=== PATIENT | male | born 1960 | race Caucasian/White ===

== ENCOUNTER 2020-04-21 17:35 | Emergency (ER) | payer MEDICARE, SELFPAY ==
[2020-03-02 10:51] VITALS: BMI 25.2
[2020-04-21 17:36] VITALS: BP 154/88; PULSE 70; RESP 16; TEMP 36.6; O2SAT 95; BMI 25.7
[2020-04-21 19:13] LABS: Absolute Lymphocyte Count 2.53 X10^3/uL (0.83-4.51); Absolute Neutrophil Count 3.3 X10^3/uL (2.0-7.7); Basophil# 0.03 X10^3/uL; Basophil% 0.4 % (0-1); Eosinophil# 0.21 X10^3/uL; Eosinophils% 3.1 % (0-5); Hematocrit 38.6 % (40-54); Hemoglobin 12.9 g/dL (13.0-16.5); Lymphocyte # 2.53 X10^3/ul (4.0); Lymphocyte % 37.4 % (19-41); Mean Corp Hgb Conc 33.4 g/dL (32-36); Mean Corpuscular Hgb 31.1 pg (27.0-32.0); Mean Platelet Vol. 9.2 fl (6.2-12.0); Monocyte# 0.72 X10^3/uL; Monocyte% 10.6 % (0-10); NRBC Flagged by Analyzer 0 % (0-5); Neutrophil # 3.27 X10^3/uL (2.7-7.7); Neutrophil % 48.4 % (47-70); Platelet Count 230 K/mm3 (150-450); RBC Distribution Width CV 12.9 % (11.6-14.6); RBC Distribution Width SD 43.4 fl (35.1-43.9); Red Blood Count 4.15 M/mm3 (4.6-6.2); White Blood Count 6.8 K/mm3 (4.4-11.0)
[2020-04-21 19:27] LABS: Anion Gap 5 (5-15); BUN 19 mg/dL (7-18); Calcium,Total 8.6 mg/dL (8.5-10.1); Chloride 108 mmol/L (98-107); EST Glomerular Filtration Rate 91 mL/min (>60); Est Glom Filt Rate - Afr Amer 110 mL/min (>60); Glucose 96 mg/dL (74-106); Sodium Level 142 mmol/L (136-145)
[2020-04-21 19:57] VITALS: BP 155/91; PULSE 62; RESP 18; O2SAT 96
--- NOTE | 2020-04-21 20:25 | CT_ITS ---
STUDY: CT ABDOMEN AND PELVIS WITHOUT CONTRAST REASON FOR EXAM: Male, 59 years old. L flank and lower abdominal pain. RADIATION DOSAGE (If Supplied By Facility): CTDIvol = ( 6.95 ) mGy, DLP = ( 529.02 ) mGycm TECHNIQUE: Transaxial images were obtained from the dome of the diaphragm to the symphysis pubis without oral contrast, and without intravenous contrast. Sagittal and coronal images were reconstructed. Individualized dose optimization techniques were used for this CT. COMPARISON: None. FINDINGS: The visualized lung bases are unremarkable. The visualized portions of the heart are within normal limits. Small hypodensity in segment 3 of the liver thought to be a cyst. This is too small to further characterize on a noncontrast study. Liver is otherwise unremarkable. Normal gallbladder and extrahepatic biliary system. Normal spleen. Normal pancreas. Normal bilateral adrenal glands. There are multiple right renal calculi. The largest, in the lower pole measures 3 mm. There are multiple right renal cysts. The largest, in the lower pole, measures 3.3 cm in diameter. There is no hydronephrosis. Normal right ureter. There are multiple nonobstructing left renal calculi. The largest mid kidney measures 4 mm in diameter. There is no solid mass or cyst. There is no hydronephrosis. Normal left ureter. Normal visualized stomach. Normal small intestine. Feces is seen throughout the colon without mass or obstruction. There are scattered diverticuli without acute inflammatory change. The appendix is visualized and appears normal. There is diffuse atherosclerotic calcification of the abdominal aorta, without a demonstrated aneurysm. Normal inferior vena cava. Normal retroperitoneum. Normal urinary bladder. The prostate is mildly enlarged. There is no pelvic lymphadenopathy. No free air or free fluid within the peritoneal cavity. Benign umbilical hernia with mental fat. There is a large left inguinal hernia containing unobstructed loops of small bowel. There are diffuse degenerative changes of the visualized lumbar spine. CT/Abdomen/Pelvis without Cont IMPRESSION: 1. Multiple bilateral renal calculi without hydronephrosis or ureterectasis. 2. Mildly enlarged prostate. 3. Scattered colonic diverticuli without diverticulitis. 4. Left inguinal hernia containing unobstructed small bowel. 5. The and right renal cysts. 6. Degenerative changes of the lumbar spine. Electronically Signed: Jerson Hudson DO at 20:56 EDT Tel [phone], Service support ,
[2020-04-21 21:50] LABS: Bacteria 0 SEEN /hpf (None Seen); Mucous, Urine 0 SEEN /hpf (<or=2+); Red Blood Cells-Urine 0 SEEN /hpf (0-5); Squamous Epithelial Cells - UA 0 SEEN /hpf (0-5)
--- NOTE | 2020-04-21 21:50 | ED.VIS.GEN ---
History of Present Illness Chief Complaint: Flank Pain Informant: Patient Narrative: Patient presents the emergency department with suprapubic pain that he has had for couple days but worse today. He states that this is the exact pain that he had when he has passed kidney stones in the past. He is visiting from [place] he denies any bowel changes. He denies any dysuria frequency or hematuria. No radiation to the back. No fevers. Patient states that it is hard for him to stand up when the pain comes which it does in waves. Past Medical History - Allergies and Home Meds Allergies/Adverse Reactions: Allergies No Known Allergies Allergy (Verified 04/21/20 17:38) Primary Care Physician: Tomeka Buckley MD [STAFF PHYSICIAN] - 1-2 Days if not improving Smoking Status: Former smoker Review of Systems General: Denies: Chills, Fever, Sweats Eyes: Denies: Visual changes - bilaterally, Diplopia ENT: Denies: Rhinorrhea, Sore throat Cardiovascular: Denies: Chest pain, Palpitations Respiratory: Denies: Dyspnea, Cough, Dyspnea on exertion Gastrointestinal: Reports: Abdominal pain. Denies: Nausea, Vomiting, Diarrhea, Melena, Hematochezia Genitourinary: Denies: Dysuria, Hematuria, Frequency Musculoskeletal: Denies: Back pain, Extremity Pain Skin: Denies: Rash, Wounds Neurological: Denies: Headache, Weakness, Numbness Physical Exam Vital Signs/Narrative: Vital Signs Pulse Resp BP Pulse Ox 04/21/20 19:57 62 18 155/91 H 96 Inital Vital Signs reviewed: Yes General: Well nourished, Well developed, No Acute Distress Head: Normocephalic, Atraumatic Eyes: Perrl, EOMI ENT: Moist mucous membranes, No rhinorrhea Neck: Supple, Nontender Cardiovascular: Regular rate, Regular rhythm, No murmurs Respiratory: No distress, CTA bilaterally, Chest nontender Abdomen: Soft, Nondistended, Normal bowel sounds, Tender - Mildly tender palpation in the suprapubic region Back: Nontender, Normal Inspection Extremities: Nontender, No edema Skin: Normal color, No rash Neurological: Alert, Oriented x3, Cranial nerves II-XII grossly intact, Normal Strength, Normal Sensation Psychological: Normal affect, Normal Mood Diagnostic/Tx/Re-eval Clinical Impression(s) from Imaging Studies Abdomen/Pelvis CT 04/21/20 20:25 IMPRESSION: 1. Multiple bilateral renal calculi without hydronephrosis or ureterectasis. 2. Mildly enlarged prostate. 3. Scattered colonic diverticuli without diverticulitis. 4. Left inguinal hernia containing unobstructed small bowel. 5. The and right renal cysts. 6. Degenerative changes of the lumbar spine. Electronically Signed: Jerson Hudson DO at 20:56 EDT Tel [phone], Service support , Laboratory Last Values WBC 6.8 K/mm3 (4.4-11.0) 04/21/20 18:55 RBC 4.15 M/mm3 (4.6-6.2) L 04/21/20 18:55 Hgb 12.9 g/dL (13.0-16.5) L 04/21/20 18:55 Hct 38.6 % (40-54) L 04/21/20 18:55 MCV 93.0 fL (80-94) 04/21/20 18:55 MCH 31.1 pg (27.0-32.0) 04/21/20 18:55 MCHC 33.4 g/dL (32-36) 04/21/20 18:55 RDW Std Deviation 43.4 fl (35.1-43.9) 04/21/20 18:55 RDW Coeff of Natasha 12.9 % (11.6-14.6) 04/21/20 18:55 Plt Count 230 K/mm3 (150-450) 04/21/20 18:55 MPV 9.2 fl (6.2-12.0) 04/21/20 18:55 Immature Gran % (Auto) 0.100 % (0.0-0.9) 04/21/20 18:55 Neut % (Auto) 48.4 % (47-70) 04/21/20 18:55 Lymph % (Auto) 37.4 % (19-41) 04/21/20 18:55 [place] % (Auto) 10.6 % (0-10) H 04/21/20 18:55 Eos % (Auto) 3.1 % (0-5) 04/21/20 18:55 Baso % (Auto) 0.4 % (0-1) 04/21/20 18:55 Absolute Neuts (auto) 3.3 X10^3/uL (2.0-7.7) 04/21/20 18:55 Absolute Lymphs (auto) 2.53 X10^3/uL (0.83-4.51) 04/21/20 18:55 Nucleated RBC % 0 % (0-5) 04/21/20 18:55 Sodium 142 mmol/L (136-145) 04/21/20 18:55 Potassium 4.0 mmol/L (3.5-5.1) 04/21/20 18:55 Chloride 108 mmol/L (98-107) H 04/21/20 18:55 Carbon Dioxide 29.0 mmol/L (21.0-32.0) 04/21/20 18:55 Anion Gap 5 (5-15) 04/21/20 18:55 BUN 19 mg/dL (7-18) H 04/21/20 18:55 Creatinine 0.90 mg/dL (0.70-1.30) 04/21/20 18:55 Estim Creat Clear Calc 95.80 ml/min 04/21/20 18:55 Est GFR (MDRD) Af Amer 110 mL/min (>60) 04/21/20 18:55 Est GFR (MDRD) Non-Af 91 mL/min (>60) 04/21/20 18:55 BUN/Creatinine Ratio 21.0 RATIO (10-20) H 04/21/20 18:55 Glucose 96 mg/dL (74-106) 04/21/20 18:55 Calcium 8.6 mg/dL (8.5-10.1) 04/21/20 18:55 Urine Color Cancelled 04/21/20 18:15 Urine Clarity Cancelled 04/21/20 18:15 Urine pH Cancelled 04/21/20 18:15 Ur Specific Radom Cancelled 04/21/20 18:15 U Specif Grav (Refrac) Cancelled 04/21/20 18:15 Urine Protein Cancelled 04/21/20 18:15 Urine Glucose (UA) Cancelled 04/21/20 18:15 Urine Ketones Cancelled 04/21/20 18:15 Urine Occult Blood Cancelled 04/21/20 18:15 Urine Nitrite Cancelled 04/21/20 18:15 Urine Bilirubin Cancelled 04/21/20 18:15 Urine Urobilinogen Cancelled 04/21/20 18:15 Ur Leukocyte Esterase Cancelled 04/21/20 18:15 Urine RBC Cancelled 04/21/20 18:15 Urine WBC Cancelled 04/21/20 18:15 Ur Squamous Epith Cells Cancelled 04/21/20 18:15 Ur Transition Epith Cell Cancelled 04/21/20 18:15 Ur Renal Epithelial Cell Cancelled 04/21/20 18:15 Calcium Oxalate Crystal Cancelled 04/21/20 18:15 Uric Acid Crystals Cancelled 04/21/20 18:15 Triple Phos Crystals Cancelled 04/21/20 18:15 Other Crystals Cancelled 04/21/20 18:15 Amorphous Sediment Cancelled 04/21/20 18:15 Urine Bacteria Cancelled 04/21/20 18:15 Hyaline Casts Cancelled 04/21/20 18:15 Fine Granular Casts Cancelled 04/21/20 18:15 Coarse Granular Casts Cancelled 04/21/20 18:15 Waxy Casts Cancelled 04/21/20 18:15 RBC Casts Cancelled 04/21/20 18:15 WBC Casts Cancelled 04/21/20 18:15 Urine Mucus Cancelled 04/21/20 18:15 Urine Trichomonas Cancelled 04/21/20 18:15 Urine Yeast Cancelled 04/21/20 18:15 - Medical Decision Making Basic blood work is normal and urinalysis negative. CT does not demonstrate any obvious cause for the patient's pain. He does have a large amount of stool just to the right of the bladder. Patient will be discharged home with prescription for Bentyl. He received Toradol here. Return if worsening or concerns he was advised if he continues to have symptoms past 24 hours he should have a repeat examination either by us or primary care. ED Disposition - Plan for ED Patient: Disposition: Home or Assisted Living Diagnosis: Acute abdominal pain Instructions: ED Unknown Causes of Abdominal Pain Male Prescriptions: Dicyclomine HCl [Bentyl] 20 mg PO TIDAC #20 cap Prescription Printed Referrals: Tomeka Buckley MD [STAFF PHYSICIAN] - 1-2 Days if not improving
[2020-04-21 21:53] LABS: Color, Urine Yellow (Yellow); Glucose, Dipstick Normal (Normal); Ketone-Dipstick Negative (Negative); Leukocyte Esterase-Dipstick 25 /ul (Negative); Nitrite-Dipstick Negative (Negative); Occult Blood-Urine Negative /ul (Negative); Protein-Dipstick Negative (Negative); Specific Gravity, Urine 1.025 (1.002-1.030); Urine Bilirubin Dipstick Negative (Negative); Urine Clarity Clear (Clear); Urine Urobilinogen Normal (Normal)
[2020-04-21 22:02] LABS: White Blood Cells 0-5 SEEN /hpf (0-5)
[2020-04-21 22:22] VITALS: BP 150/88; PULSE 78; RESP 16; O2SAT 95
== END 2020-04-21 22:26 | disposition home or self-care (01) ==
PROVIDERS: Emergency Provider Emergency Medicine
DX: R10.9 Unspecified abdominal pain (principal); Z87.442 Personal history of urinary calculi; Z87.891 Personal history of nicotine dependence
CPT/HCPCS: 74176; 80048; 81001; 85025; 99282; A4216